=== PATIENT | male | born 1950 | race Caucasian/White ===

== ENCOUNTER 2020-01-06 17:03 | Emergency (ER) | payer MEDICARE ==
[~2020-01-06] VITALS: Ht 177.8 cm; Wt 77.3 kg
[2020-01-06 17:07] VITALS: BP 144/77
[2020-01-06] MEDS ORDERED: ACETAMINOPHEN 325 MG TABLET PO ONE ×2 (17:30)
[2020-01-06] MEDS ORDERED: PLEASE ENTER ALLERGIES MC SCH (17:30)
[2020-01-06] MEDS ORDERED: PLEASE ENTER HEIGHT AND WEIGHT MC SCH (17:30)
[2020-01-06 17:58] LABS: ALANINE AMINOTRANSFERASE 24 U/L (12-78); ANION GAP 11 mmol/L (5-15); CALCIUM 8.2 mg/dL (8.5-10.1); CHLORIDE 104 mmol/L (98-107); CREATININE 0.98 mg/dL (0.7-1.3)
[2020-01-06] MEDS ORDERED: ACETAMINOPHEN 500 MG TABLET ONE (18:01)
[2020-01-06 18:04] LABS: ALKALINE PHOSPHATASE 54 U/L (45-117); BILIRUBIN,TOTAL 1.2 mg/dL (0.2-1.0); TOTAL PROTEIN 7.2 g/dL (6.4-8.2)
[2020-01-06 18:16] LABS: BASOPHILS % (AUTO) 0 % (0-1); EOSINOPHILS % (AUTO) 0 % (1-7); LYMPHOCYTES # (AUTO) 0.36 x10^3/uL (1-3.4); LYMPHOCYTES % (AUTO) 8 % (22-44); MD NO; MEAN CORPUSCULAR HEMOGLOBIN 31.8 pg (27.5-34.5); MEAN CORPUSCULAR HGB CONC 33.4 g/dL (33.2-36.2); MEAN CORPUSCULAR VOLUME 95.3 fL (81-97); MEAN PLATELET VOLUME 8.3 fL (7.4-10.4); MONOCYTES % (AUTO) 6 % (2-9); NEUTROPHILS % (AUTO) 86 % (42-75); PLATELET COUNT 161 x10^3/uL (130-400); RED BLOOD COUNT 4.62 x10^6/uL (4.38-5.82); RED CELL DISTRIBUTION WIDTH 12.8 % (9.4-14.8)
[2020-01-06 19:15] LABS: MICROSCOPIC INDICATED
== END 2020-01-06 19:20 | disposition home or self-care (01) ==
LOC: ED 18:04
DX: R50.9 Fever, unspecified (principal); R05 Cough; R06.02 Shortness of breath; Z20.828 Contact with and (suspected) exposure to other viral communicable diseases; R94.31 Abnormal electrocardiogram [ECG] [EKG]; E11.9 Type 2 diabetes mellitus without complications
CPT/HCPCS: 36415; 71045; 80053; 81001; 83605; 84145; 85025; 86140; 87040; 87635; 93005; 99285